=== PATIENT | male | born 1930 | race Caucasian/White ===

== ENCOUNTER 2016-09-09 11:39 | Observation (INO) | payer MEDICAID, MEDICARE, OTHER ==
[2016-09-09] VITALS (8 sets, daily range): BP systolic 102–155; BP diastolic 63–89; PULSE 80–89; RESP 18–22; TEMP 97.9–98.7; O2SAT 94–97
[~2016-09-09] VITALS: Ht 180.3 cm; Wt 95.0 kg
[2016-09-09] MEDS ORDERED: SODIUM CHLORID 0.9% 500 ML INJ 500 ML IV ONE ×2 (12:00→14:30)
--- NOTE | 2016-09-09 12:14 | PD ---
HPI Chief Complaint: Chest Pain Time Seen by Provider: 12:11 Travel History International Travel<30 days: No Contact w/Intl Traveler<30days: No Traveled to known affect area: No History of Present Illness HPI 86-year-old male that presents to the ED for evaluation of left-sided chest pain. Patient came here by ambulance for evaluation of this. Per patient he started this morning. Per patient he felt funny this morning. He has a history of COPD and has been coughing and feels somewhat short of breath. Patient currently taking Levaquin and doxycycline per his medication list. Unclear as to why. She is somewhat of a poor historian. He does to me that he had a bout replaced for a takes both in the 70s. He does have a surgical scar from this. He does not know what he's ever had any stents or heart disease secondary to an injury that he sustained when he was younger. She does take blood thinners. He states that the pain on the left chest comes and goes. He has an allergy to aspirin. Patient was not given any medications on the way here. Patient states the pain is 4 out of 10 and constant. It gets worse with cough and deep breaths. Denies any fevers chills or sweats. He does use inhalers at home. Has a history of hypertension and smoking. Patient has never been in this hospital before. She lives in assisted living facility. History again is somewhat limited with the patient. PFSH Past Medical History Hx Anticoagulant Therapy: Yes Cardiovascular Problems: Yes Congestive Heart Failure: Yes COPD: Yes Diabetes: No Hypertension: Yes Medical other: Yes (PLEURAL EFFUSIONS) Respiratory: Yes Pneumonia: Yes Renal Failure: Yes (INSUFFICIENCY) Tetanus Vaccination: Unknown Influenza Vaccination: Yes Past Surgical History Valve Replacement: Yes (ATRIAL) Social History Alcohol Use: No Tobacco Use: No Substance Use: No Allergies-Medications (Allergen,Severity, Reaction): Coded Allergies: Penicillin (Verified Allergy, Intermediate, HIVES, 09/09/16) Aspirin (Verified Allergy, Unknown, 09/09/16) Reported Meds & Prescriptions Reported Meds & Active Scripts Active Reported Flonase Nasal [place] (Fluticasone Nasal [place]) 50 Mcg/Act [place] 50 Mcg EACH NARE BID Levaquin (Levofloxacin) 500 Mg Tab 500 Mg PO Q48H Doxycycline 40 Mg Cap 100 Mg PO DAILY Acetaminophen 325 Mg Tab 325 Mg PO Q4-6H PRN Duoneb (Ipratropium-Albuterol Neb) 0.5-2.5 Mg/3 Ml Neb 1 Nebule INH Q8HR NEB Lovastatin 20 Mg Tab 20 Mg PO DAILY Klor-Con 10 (Potassium Chloride) 10 Meq Tab 10 Meq PO BID Colace (Docusate Sodium) 100 Mg Cap 100 Mg PO BID Tamsulosin (Tamsulosin HCl) 0.4 Mg Cap 0.4 Mg PO HS Breo Ellipta Inh (Fluticasone/Vilanterol) 100-25 Mcg/Act Inh 1 Puff INH DAILY Use daily at the same time. Glipizide 5 Mg Tab 2.5 Mg PO DAILY Take 30 minutes before a meal Furosemide 40 Mg Tab 40 Mg PO DAILY Plavix (Clopidogrel Bisulfate) 75 Mg Tab 75 Mg PO DAILY Review of Systems General / Constitutional: No: Fever, Chills, Weight Gain, Weight Loss, Other Eyes: No: Diploplia, Blurred Vision, Photophobia, Drainage, Redness, Foreign Body Sensation, Pain, Tearing, Blind Spots, Visual changes, Blindness, Other HENT: No: Headaches, Vertigo, Lightheadedness, Sore Throat, Rhinitis, Rhinorrhea, Congestion, Nosebleed, Neck Stiffness, Neck Pain, Masses, Gingival Bleeding, Dental Difficulties, Ear Discharge, Earache, Other Cardiovascular: Positive: Chest Pain or Discomfort, No: Palpitations, Irregular Rhythm, Tachycardia, Diaphoresis, Syncope, Dyspnea on exertion, Varicosities, Edema, Cyanosis, Varicosities, Phlebitis, Claudication, Other Respiratory: Positive: Cough, Shortness of Breath, Wheezing, No: Sneezing, Orthopnea, Hemoptysis, Stridor, Night Sweats, Pleuritic Pain, Other Gastrointestinal: No: Nausea, Vomiting, Diarrhea, Abdominal Pain, Hematemesis, Hematochezia, Constipation, Changes in Bowel Habits, Indigestion, Dysphagia, Loss of Appetite, Other Genitourinary: No: Urgency, Frequency, Dysuria, Nocturia, Hematuria, Decreased Urinary Output, Oliguria, Hesitancy, Dribbling, Incontinence, Pelvic Pain, Flank Pain, Dyspareunia, Discharge, Dysmenorrhea, Menorrhagia, Metorrhagia, Vaginal Bleeding, Other Musculoskeletal: No: Myalgias, Arthralgias, Limited ROM, Weakness, Cramping, Edema, Pain, Atrophy, Other Skin: No Rash, No Itching, No Dryness, No Lumps, No Hives, No Change in Pigmentation, No Change in nails, No Alopecia, No Lesions, No Breast Lumps, No Breast Tenderness, No Breast Swelling, No Other Neurologic: No: Weakness, Dizziness, Syncope, Focal Abnormalities, Coordination Problem, Tremor, Ataxia, Headache, Change in Mentation, Slurred Speech, Paresthesia, Incontinence, Seizures, Sensory Disturbance, Other Psychiatric: No: Anxiety, Depression, Suicidal Ideations, Disorder of Thought, Mood Disorder, Substance Abuse, Homicidal Ideation, Other Endocrine: No: Heat Intolerance, Cold Intolerance, Polyuria, Polydipsia, Other Hematologic/Lymphatic: No: Easy Bruising, Lymph Node Enlargement, Other Physical Exam Narrative GENERAL: SKIN: Warm and dry. HEAD: Atraumatic. Normocephalic. EYES: Pupils equal and round. No scleral icterus. No injection or drainage. ENT: No nasal bleeding or discharge. Mucous membranes pink and moist. Tongue is midline. No uvula deviation. NECK: Trachea midline. No JVD. CARDIOVASCULAR: Regular rate and rhythm. No murmurs, S3, S4. RESPIRATORY: No accessory muscle use. Clear to auscultation. Breath sounds equal bilaterally. GASTROINTESTINAL: Abdomen soft, non-tender, nondistended. Hepatic and splenic margins not palpable. MUSCULOSKELETAL: Extremities without clubbing, cyanosis, or edema. No obvious deformities. Chest pain is not reproducible with touch. Full range of motion of the upper and lower extremities bilaterally. 2+ pulses bilaterally. NEUROLOGICAL: Awake and alert. No obvious cranial nerve deficits. Motor grossly within normal limits. Five out of 5 muscle strength in the arms and legs. Normal speech. PSYCHIATRIC: Appropriate mood and affect; insight and judgment normal. Data Data Last Documented VS Vital Signs Date Time Temp Pulse Resp B/P Pulse Ox O2 Delivery O2 Flow Rate FiO2 09/09/16 12:00 94 Room Air 09/09/16 12:00 22 09/09/16 11:49 83 09/09/16 11:49 155/89 09/09/16 11:42 98.7 Orders Electrocardiogram (09/09/16 ) Electrocardiogram (09/09/16 11:47) B-Type Natriuretic Peptide (09/09/16 11:47) Ckmb (Isoenzyme) Profile (09/09/16 11:47) Complete Blood Count With Diff (09/09/16 11:47) Comprehensive Metabolic Panel (09/09/16 11:47) Magnesium (Mg) (09/09/16 11:47) Prothrombin Time / Inr (Pt) (09/09/16 11:47) Act Partial Throm Time (Ptt) (09/09/16 11:47) Troponin I (09/09/16 11:47) Lipase (09/09/16 11:47) Chest, Single Ap (09/09/16 11:47) Ecg Monitoring (09/09/16 11:47) Bilateral Bp Monitoring (09/09/16 11:47) Iv Access Insert/Monitor (09/09/16 11:47) Oximetry (09/09/16 11:47) Oxygen Administration (09/09/16 11:47) Sodium Chlorid 0.9% 500 Ml Inj (Ns 500 M (09/09/16 12:00) Albuterol Neb (Albuterol Neb) (09/09/16 13:30) Labs Laboratory Tests Test 09/09/16 12:02 White Blood Count 6.8 TH/MM3 Red Blood Count 4.93 MIL/MM3 Hemoglobin 13.4 GM/DL Hematocrit 40.6 % Mean Corpuscular Volume 82.5 FL Mean Corpuscular Hemoglobin 27.3 PG Mean Corpuscular Hemoglobin 33.0 % Concent Red Cell Distribution Width 15.6 % Platelet Count 104 TH/MM3 Mean Platelet Volume 8.3 FL Neutrophils (%) (Auto) 73.4 % Lymphocytes (%) (Auto) 14.8 % Monocytes (%) (Auto) 8.2 % Eosinophils (%) (Auto) 3.2 % Basophils (%) (Auto) 0.4 % Neutrophils # (Auto) 5.0 TH/MM3 Lymphocytes # (Auto) 1.0 TH/MM3 Monocytes # (Auto) 0.6 TH/MM3 Eosinophils # (Auto) 0.2 TH/MM3 Basophils # (Auto) 0.0 TH/MM3 CBC Comment DIFF FINAL Differential Comment Prothrombin Time 11.6 SEC Prothromb Time International 1.0 RATIO Ratio Activated Partial 25.2 SEC Thromboplast Time Sodium Level 142 MEQ/L Potassium Level 4.2 MEQ/L Chloride Level 107 MEQ/L Carbon Dioxide Level 26.6 MEQ/L Anion Gap 8 MEQ/L Blood Urea Nitrogen 43 MG/DL Creatinine 1.72 MG/DL Estimat Glomerular Filtration 38 ML/MIN Rate Random Glucose 56 MG/DL Calcium Level 8.5 MG/DL Magnesium Level 2.2 MG/DL Total Bilirubin 0.6 MG/DL Aspartate Amino Transf 23 U/L (AST/SGOT) Alanine Aminotransferase 17 U/L (ALT/SGPT) Alkaline Phosphatase 58 U/L Total Creatine Kinase 89 U/L Troponin I 0.05 NG/ML B-Type Natriuretic Peptide 305 PG/ML Total Protein 7.6 GM/DL Albumin 3.0 GM/DL Lipase 86 U/L [facility] Medical Decision Making Medical Screen Exam Complete: Yes Emergency Medical Condition: Yes Medical Record Reviewed: Yes Interpretation(s) EKG shows sinus rhythm with no sign of acute ischemia or arrhythmia read by me and attending. Troponin and CK-MB negative. CBC & BMP Diagram 09/09/16 12:02 LFTs and Lipase WNL BNP in the 300s Last Impressions Chest X-Ray 09/09/16 1147 Signed Impressions: Service Date/Time: Friday, September 09, 2016 11:57 - CONCLUSION: Cardiomegaly without evidence of congestive heart failure. Blunting of the left costophrenic angle which may represent fluid versus scar. Kortney Curry MD Differential Diagnosis Pneumonia versus COPD exacerbation versus chest pain versus ACS versus cardiac chest pain Narrative Course 86-year-old male that presents to the ED for evaluation of left-sided chest pain. Patient was properly examined and was found to have signs and symptoms consistent with appears to be concerning for cardiac chest pain. This time labs and imaging recommended. Labs and imaging showed no sign of acute disease. I did reexamine the patient and he does have some rales on exam. Patient still complains of the left-sided chest pain. Again patient for she cannot take aspirin but he already takes blood thinner. Case was discussed in my attending Dr. Puga who recommends admission for at least chest pain rule out. Patient was given breathing treatment here to help with his shortness of breath. Patient was given nitroglycerin as well for his chest pain. Patient goes to Dr. Vaughn is his primary care doctor. I was informed that Dr. Vaughn it' s admitting to [facility] this weekend. JOS was paged and Dr. Mendenhall agreed to admission. Diagnosis Primary Impression: Chest pain in adult Additional Impressions: COPD (chronic obstructive pulmonary disease) Qualified Code: J44.1 - Chronic obstructive pulmonary disease with acute exacerbation Acute kidney injury Admitting Information Admitting Physician Requests: Observation Addison Pereyra Sep 09, 2016 12:14 Addison Pereyra Sep 09, 2016 12:14
[2016-09-09] MEDS ORDERED: TAMS0.4C4 PO (12:20)
[2016-09-09] MEDS ORDERED: LEVA500T PO (12:20)
[2016-09-09] MEDS ORDERED: LOVA20TA PO (12:20)
[2016-09-09] MEDS ORDERED: COLA100C3 PO (12:20)
[2016-09-09] MEDS ORDERED: POTA-243 PO (12:20)
[2016-09-09] MEDS ORDERED: IPRASOL INH (12:20)
[2016-09-09] MEDS ORDERED: ACET325T PO (12:20)
[2016-09-09] MEDS ORDERED: FLUT1INH INH (12:20)
[2016-09-09] MEDS ORDERED: DOXY1CAP74 PO (12:20)
[2016-09-09] MEDS ORDERED: FLUT1SPR5 EACH NARE (12:20)
[2016-09-09] MEDS ORDERED: GLIP5TAB8 PO (12:20)
[2016-09-09] MEDS ORDERED: FURO40TA PO (12:20)
[2016-09-09] MEDS ORDERED: PLAV75TA29 PO (12:20)
[2016-09-09 12:33] LABS: BASOPHIL % 0.4 % (0.0-2.0); EOSINOPHIL # 0.2 TH/MM3 (0-0.4); EOSINOPHIL % 3.2 % (0.0-4.0); HEMATOCRIT 40.6 % (39.0-51.0); HEMO FLAGS DIFF FINAL; LYMPH % 14.8 % (9.0-44.0); MEAN CELL VOLUME 82.5 FL (80.0-100.0); MEAN CORPUSCULAR HEMOGLOBIN 27.3 PG (27.0-34.0); MONO % 8.2 % (0.0-8.0); NEUT % 73.4 % (16.0-70.0); PLATELET COUNT 104 TH/MM3 (150-450); RED BLOOD COUNT 4.93 MIL/MM3 (4.50-5.90); RED CELL DISTRIBUTION WIDTH 15.6 % (11.6-17.2); WHITE BLOOD COUNT 6.8 TH/MM3 (4.0-11.0)
[2016-09-09 12:40] LABS: APTT (PATIENT) 25.2 SEC (24.3-30.1); PROTHROMBIN TIME - PATIENT 11.6 SEC (9.8-11.6)
[2016-09-09 12:45] LABS: ANION GAP 8 MEQ/L (5-15); AST (GOT) 23 U/L (15-37); BICARBONATE 26.6 MEQ/L (21.0-32.0); BLOOD UREA NITROGEN 43 MG/DL (7-18); CHLORIDE 107 MEQ/L (98-107); GLOMERULAR FILTRATION RATE 38 ML/MIN (>89); MAGNESIUM 2.2 MG/DL (1.5-2.5); POTASSIUM 4.2 MEQ/L (3.5-5.1); SODIUM (NA) 142 MEQ/L (136-145)
--- NOTE | 2016-09-09 12:45 | RADRPT ---
EXAM DATE/TIME: 09/09/2016 11:57 [facility] COMPARISON: No previous studies available for comparison. INDICATIONS : Chest pain. MEDICAL HISTORY : Hypertension. Congestive heart failure. Chronic obstructive pulmonary disease. SURGICAL HISTORY : Valve replacement. ENCOUNTER: Initial ACUITY: 1 day PAIN SCORE: Non-responsive. LOCATION: Bilateral chest FINDINGS: Single portable view of the chest demonstrates mild cardiomegaly. Pulmonary vasculature is mildly pro minent. The lungs appear grossly clear. There is slight blunting of the left costophrenic angle which may represent fluid or scar. Multiple intact mediastinal wires are present. CONCLUSION: Cardiomegaly without evidence of congestive heart failure. Blunting of the left costophrenic angle wh ich may represent fluid versus scar. Kortney Curry MD on September 09, 2016 at 12:42 Board Certified Radiologist. This report was verified electronically.
[2016-09-09 12:50] LABS: ALKALINE PHOSPHATASE 58 U/L (45-117); ALT (GPT) 17 U/L (12-78); TOTAL BILIRUBIN ADULT 0.6 MG/DL (0.2-1.0)
[2016-09-09 12:51] LABS: CREATINE KINASE 89 U/L (39-308)
[2016-09-09] MEDS ORDERED: RESP: ALBUTEROL 2.5 MG/3 ML NEB (SCH) INH ONE (13:30)
[2016-09-09] MEDS ORDERED: ACETAMINOPHEN 325 MG TAB PO PRN (13:30)
[2016-09-09] MEDS ORDERED: DEXTROSE 50% IN WATER 50 ML VIAL(D50) IV PUSH PRN (13:30)
[2016-09-09] MEDS ORDERED: GLUCAGON 1 MG/ML VIAL OTHER PRN (13:30)
[2016-09-09] MEDS ORDERED: RESP: ALBUTEROL 1.25 MG/3 ML NEB (PRN) NEB ×2 (13:30→16:00)
[2016-09-09] MEDS ORDERED: guaiFENesin SOLUTION 200 MG/10 ML CUP PO PRN (14:30)
[2016-09-09] MEDS ORDERED: LEVOFLOXACIN 500 MG PREMIX INJ 100 ML IV SCH (14:30)
[2016-09-09] MEDS ORDERED: [UNRECOGNIZED DRUG - REMARK] OTHER SCH (14:30)
[2016-09-09] MEDS ORDERED: ACETAMINOPHEN/HYDROcodone 325 MG/5 MG TAB PO PRN (14:30)
--- NOTE | 2016-09-09 14:30 | HHI.HP ---
[facility] Service [facility] Primary Care Physician Eduar Vaughn MD Admission Diagnosis chest pain, r/o ACS, CHF, COPD Diagnoses: (1) Chest pain in adult Diagnosis: Principal (2) COPD exacerbation Diagnosis: Principal Chief Complaint: chest pain Travel History International Travel<30 Days: No Contact w/Intl Traveler <30 Da: No Traveled to Known Affected Are: No History of Present Illness patient is a 86 y/o male with history of COPD- oxygen dependent, who presented to ER with chest pain. he says that the pain started earlier this morning. pain is localized to left lower chest and left lateral rib cage with no radiation. pain was not associated with nausea, vomiting or diaphoresis. pain is worse with deep inspiration. he says that he's been coughing productive of some yellowish sputum. no fever or chills. Review of Systems Constitutional: DENIES: Fever, Weight loss, Chills, Night Sweats Eyes: DENIES: Blurred vision, Diplopia, Vision loss, Double Vision Ears, nose, mouth, throat: DENIES: Tinnitus, Vertigo, Throat pain, Epistaxis Respiratory: COMPLAINS OF: Sputum production, Shortness of breath, DENIES: Apneas, Cough, Snoring, Wheezing, Hemoptysis Cardiovascular: COMPLAINS OF: Chest pain, DENIES: Palpitations, Syncope, Dyspnea on Exertion, PND, Lower Extremity Edema, Orthopnea, Claudication Gastrointestinal: DENIES: Abdominal pain, Black stools, Bloody stools, Constipation, Diarrhea, Nausea, Vomiting, Difficulty Swallowing, Anorexia Genitourinary: DENIES: Urinary frequency, Urgency, Hematuria, Dysuria Musculoskeletal: DENIES: Joint pain, Muscle aches, Stiffness, Joint Swelling Integumentary: DENIES: Rash Neurologic: DENIES: Abnormal gait, Headache, Localized weakness, Paresthesias, Seizures, Speech Problems, Tremor, Poor Balance Psychiatric: DENIES: Anxiety, Confusion, Mood changes, Depression, Hallucinations, Agitation, Suicidal Ideation, Homicidal Ideation, Delusions Past Family Social History Past Medical History copd cad with history of valve replacemt hypertension diabetes mellitus Past Surgical History valve replacement Reported Medications Flonase Nasal [place] (Fluticasone Nasal [place]) 50 Mcg/Act [place] 50 Mcg EACH NARE BID Levaquin (Levofloxacin) 500 Mg Tab 500 Mg PO Q48H Doxycycline 40 Mg Cap 100 Mg PO DAILY Acetaminophen 325 Mg Tab 325 Mg PO Q4-6H PRN Duoneb (Ipratropium-Albuterol Neb) 0.5-2.5 Mg/3 Ml Neb 1 Nebule INH Q8HR NEB Lovastatin 20 Mg Tab 20 Mg PO DAILY Klor-Con 10 (Potassium Chloride) 10 Meq Tab 10 Meq PO BID Colace (Docusate Sodium) 100 Mg Cap 100 Mg PO BID Tamsulosin (Tamsulosin HCl) 0.4 Mg Cap 0.4 Mg PO HS Breo Ellipta Inh (Fluticasone/Vilanterol) 100-25 Mcg/Act Inh 1 Puff INH DAILY Use daily at the same time. Glipizide 5 Mg Tab 2.5 Mg PO DAILY Take 30 minutes before a meal Furosemide 40 Mg Tab 40 Mg PO DAILY Plavix (Clopidogrel Bisulfate) 75 Mg Tab 75 Mg PO DAILY Allergies: Coded Allergies: Penicillin (Verified Allergy, Intermediate, HIVES, 09/09/16) Aspirin (Verified Allergy, Unknown, 09/09/16) Active Ordered Medications Current Medications Sodium Chloride (NS 500 ml Inj) 500 ml @ 500 mls/hr ONCE ONCE IV Last administered on 09/09/16 12:22; Start 09/09/16 at 12:00; Stop 09/09/16 at 12:59 ; Status DC Albuterol Sulfate (Albuterol Neb) 2.5 mg ONCE ONCE INH Last administered on 13:48; Start 09/09/16 at 13:30; Stop 09/09/16 at 13:31; Status DC Dextrose (D50w (Vial) Inj) 25 ml UNSCH PRN IV PUSH HYPOGLYCEMIA-SEE COMMENTS; Start 09/09/16 at 13:30 Glucagon (Glucagon Inj) 1 mg UNSCH PRN OTHER HYPOGLYCEMIA-SEE COMMENTS; Start 09/09/16 at 13:30 Insulin Aspart (NovoLOG SUPPLEMENTAL SCALE) 1 ACHS SLIDING SCALE SQ ; Start at 16:00 Acetaminophen (Tylenol) 325 mg Q4HR PRN PO FEVER/PAIN; Start 09/09/16 at 13:30 Clopidogrel Bisulfate (Plavix) 75 mg DAILY PO ; Start 09/10/16 at 09:00 Fluticasone/ Vilanterol (Breo Ellipta 100-25 Inh) 1 puff DAILY INH ; Start 09/10 at 09:00 Pravastatin Sodium (Pravachol) 20 mg DAILY PO ; Start 09/10/16 at 09:00 Tamsulosin HCl (Flomax) 0.4 mg HS PO ; Start 09/09/16 at 21:00 Albuterol Sulfate (Albuterol Neb) 1.25 mg Q4HR NEB PRN NEB SHORTNESS OF BREATH ; Start 09/09/16 at 13:30 Social History quit smoking years ago. Physical Exam Vital Signs Vital Signs Date Time Temp Pulse Resp B/P Pulse Ox O2 Delivery O2 Flow Rate FiO2 09/09/16 13:52 94 Nasal Cannula 2.00 09/09/16 12:00 94 Room Air 09/09/16 12:00 22 94 Room Air 09/09/16 11:49 83 22 94 Room Air 09/09/16 11:49 81 22 155/89 94 09/09/16 11:42 98.7 89 20 155/89 94 Physical Exam GENERAL: with mild sob SKIN: No rashes, ecchymoses or lesions. Cool and dry. HEAD: Atraumatic. Normocephalic. No temporal or scalp tenderness. EYES: Pupils equal round and reactive. Extraocular motions intact. No scleral icterus. No injection or drainage. ENT: Nose without bleeding, purulent drainage or septal hematoma. Throat without erythema, tonsillar hypertrophy or exudate. Uvula midline. Airway patent. NECK: Trachea midline. No JVD or lymphadenopathy. Supple, nontender, no meningeal signs. CARDIOVASCULAR: Regular rate and rhythm without murmurs, gallops, or rubs. RESPIRATORY: diminished air entry in bases GASTROINTESTINAL: Abdomen soft, non-tender, nondistended. No hepato-splenomegaly , or palpable masses. No guarding. MUSCULOSKELETAL: Extremities without clubbing, cyanosis, or edema. No joint tenderness, effusion, or edema noted. No calf tenderness. Negative Homans sign bilaterally. NEUROLOGICAL: Awake and alert. Cranial nerves II through XII intact. Motor and sensory grossly within normal limits. Five out of 5 muscle strength in all muscle groups. Normal speech. Laboratory Laboratory Tests Test 09/09/16 12:02 White Blood Count 6.8 Red Blood Count 4.93 Hemoglobin 13.4 Hematocrit 40.6 Mean Corpuscular Volume 82.5 Mean Corpuscular Hemoglobin 27.3 Mean Corpuscular Hemoglobin 33.0 Concent Red Cell Distribution Width 15.6 Platelet Count 104 Mean Platelet Volume 8.3 Neutrophils (%) (Auto) 73.4 Lymphocytes (%) (Auto) 14.8 Monocytes (%) (Auto) 8.2 Eosinophils (%) (Auto) 3.2 Basophils (%) (Auto) 0.4 Neutrophils # (Auto) 5.0 Lymphocytes # (Auto) 1.0 Monocytes # (Auto) 0.6 Eosinophils # (Auto) 0.2 Basophils # (Auto) 0.0 CBC Comment DIFF FINAL Differential Comment Prothrombin Time 11.6 Prothromb Time International 1.0 Ratio Activated Partial 25.2 Thromboplast Time Sodium Level 142 Potassium Level 4.2 Chloride Level 107 Carbon Dioxide Level 26.6 Anion Gap 8 Blood Urea Nitrogen 43 Creatinine 1.72 Estimat Glomerular Filtration 38 Rate Random Glucose 56 Calcium Level 8.5 Magnesium Level 2.2 Total Bilirubin 0.6 Aspartate Amino Transf 23 (AST/SGOT) Alanine Aminotransferase 17 (ALT/SGPT) Alkaline Phosphatase 58 Total Creatine Kinase 89 Troponin I 0.05 B-Type Natriuretic Peptide 305 Total Protein 7.6 Albumin 3.0 Lipase 86 Result Diagram: 09/09/16 1202 09/09/16 1202 Imaging Last Impressions Chest X-Ray 09/09/16 1147 Signed Impressions: Service Date/Time: Friday, September 09, 2016 11:57 - CONCLUSION: Cardiomegaly without evidence of congestive heart failure. Blunting of the left costophrenic angle which may represent fluid versus scar. Kortney Curry MD Assessment and Plan Assessment and Plan A/P - chest pain with history of CAD/ valve replacement? continue plavix and statin- will trend the cardiac enzymes -mild exacerbation of COPD continue Breo- start neb treatment and antibiotic ( pharmacy consulted for dosing) -renal insufficiency with unknown duration gentle IV hydration- hold lasix for now- repeat BMP in am -diabetes mellitus; accu-check with SSI -DVT prophylaxis with SCD's Discussed Condition With ER physician and the patient. Barbara Collins MD Sep 09, 2016 14:30
[2016-09-09] MEDS ORDERED: LEVOFLOXACIN 750 MG/DEXTROSE 150 ML IV SCH ×2 (15:00)
[2016-09-09] MEDS: INSULIN ASPART SUPPLEMENTAL SCALE SQ SCH ×2 (16:00→20:52)
[2016-09-09] MEDS: RESP: ALBUTEROL 2.5 MG/IPRATROPIUM 0.5 MG NEB (SCH) NEB (21:29)
[2016-09-09] MEDS: TAMSULOSIN HCL 0.4 MG CAP PO SCH (21:39)
[2016-09-10] VITALS (10 sets, daily range): BP systolic 107–126; BP diastolic 60–80; PULSE 68–95; RESP 18–22; TEMP 98–98.7; O2SAT 92–97
[2016-09-10] MEDS: RESP: ALBUTEROL 2.5 MG/IPRATROPIUM 0.5 MG NEB (SCH) NEB ×6 (00:25→20:14)
[2016-09-10 02:43] LABS: BICARBONATE 27.2 MEQ/L (21.0-32.0); POTASSIUM 3.8 MEQ/L (3.5-5.1)
[2016-09-10] MEDS: INSULIN ASPART SUPPLEMENTAL SCALE SQ SCH ×4 (05:38→21:00)
--- NOTE | 2016-09-10 07:41 | HHI.PR ---
Subjective Remarks in no acute distress. chest pain and sob is better. no fever. Objective Vitals Vital Signs Date Time Temp Pulse Resp B/P Pulse Ox O2 Delivery O2 Flow Rate FiO2 09/10/16 03:47 98.0 68 18 107/60 97 09/10/16 00:45 98.2 92 18 115/68 96 09/09/16 20:21 80 09/09/16 19:36 97.9 81 18 102/64 97 09/09/16 15:16 81 22 128/70 97 Nasal Cannula 2 09/09/16 14:00 83 20 130/63 96 Nasal Cannula 2 09/09/16 13:52 94 Nasal Cannula 2.00 09/09/16 12:00 94 Room Air 09/09/16 12:00 22 94 Room Air 09/09/16 11:49 83 22 94 Room Air 09/09/16 11:49 81 22 155/89 94 09/09/16 11:42 98.7 89 20 155/89 94 Result Diagram: 09/09/16 1202 09/10/16 0025 Imaging Last Impressions Chest X-Ray 09/09/16 1147 Signed Impressions: Service Date/Time: Friday, September 09, 2016 11:57 - CONCLUSION: Cardiomegaly without evidence of congestive heart failure. Blunting of the left costophrenic angle which may represent fluid versus scar. Kortney Curry MD Objective Remarks GENERAL: This is a well-nourished, well-developed patient, in no apparent distress. CARDIOVASCULAR: Regular rate and regular rhythm without murmurs, gallops, or rubs. RESPIRATORY: diminished air entry in bases GASTROINTESTINAL: Abdomen soft, non-tender, nondistended. Normal, active bowel sounds MUSCULOSKELETAL: Extremities without clubbing, cyanosis, or edema. NEURO: Alert & Oriented x4 to person, place, time, situation. Moves all ext x4 Procedures none Medications and IVs Current Medications Sodium Chloride (NS 500 ml Inj) 500 ml @ 500 mls/hr ONCE ONCE IV Last administered on 09/09/16 12:22; Start 09/09/16 at 12:00; Stop 09/09/16 at 12:59 ; Status DC Albuterol Sulfate (Albuterol Neb) 2.5 mg ONCE ONCE INH Last administered on 13:48; Start 09/09/16 at 13:30; Stop 09/09/16 at 13:31; Status DC Dextrose (D50w (Vial) Inj) 25 ml UNSCH PRN IV PUSH HYPOGLYCEMIA-SEE COMMENTS; Start 09/09/16 at 13:30 Glucagon (Glucagon Inj) 1 mg UNSCH PRN OTHER HYPOGLYCEMIA-SEE COMMENTS; Start 09/09/16 at 13:30 Insulin Aspart (NovoLOG SUPPLEMENTAL SCALE) 1 ACHS SLIDING SCALE SQ ; Start at 16:00 Acetaminophen (Tylenol) 325 mg Q4HR PRN PO FEVER/ PAIN 1-5; Start 09/09/16 at 13:30 Clopidogrel Bisulfate (Plavix) 75 mg DAILY PO ; Start 09/10/16 at 09:00 Fluticasone/ Vilanterol (Breo Ellipta 100-25 Inh) 1 puff DAILY INH ; Start 09/10 at 09:00 Pravastatin Sodium (Pravachol) 20 mg DAILY PO ; Start 09/10/16 at 09:00 Tamsulosin HCl (Flomax) 0.4 mg HS PO Last administered on 09/09/16t 21:39; Start 09/09/16 at 21:00 Albuterol Sulfate (Albuterol Neb) 1.25 mg Q4HR NEB PRN NEB SHORTNESS OF BREATH ; Start 09/09/16 at 13:30; Stop 09/09/16 at 14:20; Status DC Albuterol Sulfate (Albuterol Neb) 1.25 mg Q2HR NEB PRN NEB SHORTNESS OF BREATH ; Start 09/09/16 at 16:00 Albuterol/ Ipratropium (Duoneb Neb) 1 ampule Q4HR NEB NEB Last administered on 09/10/16t 03:31; Start 09/09/16 at 16:00 Acetaminophen/ Hydrocodone Bitart 1 tab 1 tab Q4H PRN PO PAIN 6-10; Start 09/09 at 14:30 Levofloxacin/ Dextrose (Levaquin 500 Mg Premix Inj) 100 ml @ 100 mls/hr Q24H IV ; Start 09/09/16 at 14:30; Status UNV Guaifenesin 200 mg 200 mg Q4H PRN PO COUGH; Start 09/09/16 at 14:30 Pharmacy Profile Note 0 ml @ 0 mls/hr UNSCH OTHER ; Start 09/09/16 at 14:30 Sodium Chloride 500 ml @ 50 mls/hr Q10H ONCE IV Last administered on 15:02; Start 09/09/16 at 14:30; Stop 09/10/16 at 00:29; Status DC Levofloxacin/ Dextrose 150 ml @ 100 mls/hr Q24H IV ; Start 09/09/16 at 15:00; Status Cancel Levofloxacin/ Dextrose (Levaquin 750 Mg Premix Inj) 150 ml @ 100 mls/hr Q48H IV Last administered on 09/09/16 15:02; Start 09/09/16 at 15:00 A/P Assessment and Plan A/P - chest pain with history of CAD/ valve replacement? continue plavix and statin- cardiac enzymes negative- will do stress test today. -mild exacerbation of COPD- improving continue Breo and neb treatment along with antibiotic ( pharmacy consulted for dosing) -renal insufficiency with unknown duration- improved continue gentle IV hydration- hold lasix for now- repeat BMP in am -diabetes mellitus; accu-check with SSI -DVT prophylaxis with SCD's Discharge Planning possible dc home in am if stable- pending the stress test. Barbara Collins MD Sep 10, 2016 07:41
[2016-09-10] MEDS ORDERED: SODIUM CHLORID 0.9% 500 ML INJ 500 ML IV ONE (08:00)
[2016-09-10] MEDS: CLOPIDOGREL 75 MG TAB PO SCH (08:59)
[2016-09-10] MEDS: PRAVASTATIN SOD 20 MG TAB PO SCH (08:59)
[2016-09-10] MEDS: FLUTICASONE 100 MCG/VILANTEROL 25 MCG INHALER INH SCH (11:20)
[2016-09-10] MEDS ORDERED: REGADENOSON INJ 0.4 MG/5 ML SYR ONE (12:36)
--- NOTE | 2016-09-10 14:34 | RADRPT ---
EXAM DATE/TIME: 09/10/2016 11:53 [facility] COMPARISON: No previous studies available for comparison. INDICATIONS : Left chest pain for 1 day. Cardiomegaly. Angina. Congestive heart failure. DOSE: 25.9 mCi Tc99m Myoview at stress. 8.1 mCi Tc99m Myoview at rest. 0.4 mg Lexiscan STRESS SYMPTOMS: Shortness of breath. EJECTION FRACTION: 61% MEDICAL HISTORY : Renal insufficiency. Chronic obstructive pulmonary disease. Pleural effusion. SURGICAL HISTORY : None. ENCOUNTER: Initial ACUITY: 1 day PAIN SCALE: 4/10 LOCATION: Left chest TECHNIQUE: The patient underwent pharmacologic stress with infusion of prescribed dose. Continuous ECG tracing was monitored during stress. Gated SPECT imaging was performed after stress and conventional SPECT i maging was performed at rest. The examination was performed on a SPECT/CT scanner, both attenuation and non-corrected datasets were reviewed. FINDINGS: DISTRIBUTION: The maximum perfused segment at stress is in the septal wall. PERFUSION STUDY: There is a large fixed perfusion defect in the lateral wall consistent with old [place]. No reversible def ects. GATED STUDY: Hypokinesis of the lateral wall. CONCLUSION: Fixed perfusion defect involving the lateral wall consistent with old [place].. RISK CATEGORY: Intermediate risk. Kortney Curry MD on September 10, 2016 at 14:30 Board Certified Radiologist. This report was verified electronically.
[2016-09-10] MEDS ORDERED: PILL SPLITTER OTHER PRN (15:15)
--- NOTE | 2016-09-10 15:48 | EKG ---
Date Performed: 09/09/2016 Time Performed: 11:53:27 PTAGE: 86 years EKG: The underlying is difficult to discern Possible Sinus with first degree AV block vs Atrial fibrillation Right axis deviation Right bundle branch block Premature ventricular contractions NO PREVIOUS TRACING DOCTOR: Kar Bonds Interpretating Date/Time 09/10/2016 15:47:39
--- NOTE | 2016-09-10 15:50 | EKG ---
Date Performed: 09/09/2016 Time Performed: 17:48:53 PTAGE: 86 years EKG: Sinus rhythm WITH FIRST DEGREE AV BLOCK with PVCs Left axis deviation RIGHT BUNDLE BRANCH BLOCK There is a shift in axis compared to prior tracing and a possible rhythm change ABNORMAL ECG PREVIOUS TRACING : 09/09/2016 11.53 DOCTOR: Kar Bonds Interpretating Date/Time 09/10/2016 15:48:52
--- NOTE | 2016-09-10 15:52 | EKG ---
Date Performed: 09/10/2016 Time Performed: 01:42:53 PTAGE: 86 years EKG: Sinus rhythm WITH FIRST DEGREE AV BLOCK RIGHT BUNDLE BRANCH BLOCK LEFT ANTERIOR FASCICULAR BLOCK CANNOT EXCLUDE A NTEROSEPTAL [place] Compared to prior tracing no significant change ABNORMAL ECG PREVIOUS TRACING : 09/09/2016 17.48 DOCTOR: Kar Bonds Interpretating Date/Time 09/10/2016 15:51:05
[2016-09-10] MEDS: METOPROLOL TARTRATE 25 MG TAB PO SCH (16:28)
[2016-09-10] MEDS: TAMSULOSIN HCL 0.4 MG CAP PO SCH (22:27)
[2016-09-11] VITALS (8 sets, daily range): BP systolic 99–121; BP diastolic 56–77; PULSE 78–102; RESP 18; TEMP 97.5–98.4; O2SAT 91–97
[2016-09-11] MEDS: RESP: ALBUTEROL 2.5 MG/IPRATROPIUM 0.5 MG NEB (SCH) NEB ×6 (00:45→19:43)
[2016-09-11] MEDS: INSULIN ASPART SUPPLEMENTAL SCALE SQ SCH ×3 (06:17→16:00)
--- NOTE | 2016-09-11 07:48 | HHI.PR ---
Subjective Remarks sounds congested. no fever. has some cough. d/w the RN and had occasional episodes of confusion. Objective Vitals Vital Signs Date Time Temp Pulse Resp B/P Pulse Ox O2 Delivery O2 Flow Rate FiO2 09/11/16 01:00 98.4 78 18 121/64 97 09/10/16 20:47 98.0 78 18 126/78 97 09/10/16 20:16 92 Nasal Cannula 3.00 09/10/16 20:00 90 09/10/16 16:00 98.3 95 22 122/79 94 09/10/16 15:37 98.7 95 18 125/80 95 09/10/16 09:43 93 Nasal Cannula 3.00 09/10/16 08:05 98.2 80 19 115/66 96 09/10/16 08:00 83 Result Diagram: 09/09/16 1202 09/10/16 0025 Imaging Last Impressions Myocardial Perfusion Scan Nuc Med 09/10/16 0000 Signed Impressions: Service Date/Time: Saturday, September 10, 2016 11:53 - CONCLUSION: Fixed perfusion defect involving the lateral wall consistent with old [place].. RISK CATEGORY: Intermediate risk. Kortney Curry MD Chest X-Ray 09/09/16 1147 Signed Impressions: Service Date/Time: Friday, September 09, 2016 11:57 - CONCLUSION: Cardiomegaly without evidence of congestive heart failure. Blunting of the left costophrenic angle which may represent fluid versus scar. Kortney Curry MD Objective Remarks GENERAL: This is a well-nourished, well-developed patient, in no apparent distress. CARDIOVASCULAR: Regular rate and regular rhythm without murmurs, gallops, or rubs. RESPIRATORY: sounds congested GASTROINTESTINAL: Abdomen soft, non-tender, nondistended. Normal, active bowel sounds MUSCULOSKELETAL: Extremities without clubbing, cyanosis, or edema. NEURO: Alert & Oriented x4 to person, place, time, situation. Moves all ext x4 Procedures none Medications and IVs Current Medications Sodium Chloride (NS 500 ml Inj) 500 ml @ 500 mls/hr ONCE ONCE IV Last administered on 09/09/16t 12:22; Start 09/09/16 at 12:00; Stop 09/09/16 at 12:59 ; Status DC Albuterol Sulfate (Albuterol Neb) 2.5 mg ONCE ONCE INH Last administered on 13:48; Start 09/09/16 at 13:30; Stop 09/09/16 at 13:31; Status DC Dextrose (D50w (Vial) Inj) 25 ml UNSCH PRN IV PUSH HYPOGLYCEMIA-SEE COMMENTS; Start 09/09/16 at 13:30 Glucagon (Glucagon Inj) 1 mg UNSCH PRN OTHER HYPOGLYCEMIA-SEE COMMENTS; Start 09/09/16 at 13:30 Insulin Aspart (NovoLOG SUPPLEMENTAL SCALE) 1 ACHS SLIDING SCALE SQ ; Start at 16:00 Acetaminophen (Tylenol) 325 mg Q4HR PRN PO FEVER/ PAIN 1-5; Start 09/09/16 at 13:30 Clopidogrel Bisulfate (Plavix) 75 mg DAILY PO Last administered on 09/10/16 08 :59; Start 09/10/16 at 09:00 Fluticasone/ Vilanterol (Breo Ellipta 100-25 Inh) 1 puff DAILY INH Last administered on 09/10/16 11:20; Start 09/10/16 at 09:00 Pravastatin Sodium (Pravachol) 20 mg DAILY PO Last administered on 09/10/16 08 :59; Start 09/10/16 at 09:00 Tamsulosin HCl (Flomax) 0.4 mg HS PO Last administered on 09/10/16 22:27; Start 09/09/16 at 21:00 Albuterol Sulfate (Albuterol Neb) 1.25 mg Q4HR NEB PRN NEB SHORTNESS OF BREATH ; Start 09/09/16 at 13:30; Stop 09/09/16 at 14:20; Status DC Albuterol Sulfate (Albuterol Neb) 1.25 mg Q2HR NEB PRN NEB SHORTNESS OF BREATH ; Start 09/09/16 at 16:00 Albuterol/ Ipratropium (Duoneb Neb) 1 ampule Q4HR NEB NEB Last administered on 09/11/16 03:40; Start 09/09/16 at 16:00 Acetaminophen/ Hydrocodone Bitart 1 tab 1 tab Q4H PRN PO PAIN 6-10; Start 09/09 at 14:30 Levofloxacin/ Dextrose (Levaquin 500 Mg Premix Inj) 100 ml @ 100 mls/hr Q24H IV ; Start 09/09/16 at 14:30; Status UNV Guaifenesin 200 mg 200 mg Q4H PRN PO COUGH; Start 09/09/16 at 14:30 Pharmacy Profile Note 0 ml @ 0 mls/hr UNSCH OTHER ; Start 09/09/16 at 14:30 Sodium Chloride 500 ml @ 50 mls/hr Q10H ONCE IV Last administered on 15:02; Start 09/09/16 at 14:30; Stop 09/10/16 at 00:29; Status DC Levofloxacin/ Dextrose 150 ml @ 100 mls/hr Q24H IV ; Start 09/09/16 at 15:00; Status Cancel Levofloxacin/ Dextrose 150 ml @ 100 mls/hr Q48H IV Last administered on 15:02; Start 09/09/16 at 15:00 Sodium Chloride (NS 500 ml Inj) 500 ml @ 50 mls/hr Q10H ONCE IV Last administered on 09/10/16 10:38; Start 09/10/16 at 08:00; Stop 09/10/16 at 17:59 ; Status DC Regadenoson (Lexiscan Inj) 0.4 mg STK-MED ONCE .ROUTE Last administered on 09/10 12:36; Start 09/10/16 at 12:36; Stop 09/10/16 at 12:37; Status DC Metoprolol Tartrate (Lopressor) 12.5 mg DAILY PO Last administered on 16:28; Start 09/10/16 at 16:00 Miscellaneous (Pill Splitter) 1 ea UNSCH PRN OTHER SEE LABEL COMMENTS; Start at 15:15 A/P Assessment and Plan A/P - chest pain with history of CAD/ valve replacement? continue plavix and statin- cardiac enzymes negative- stress test with no reversible ischemia -mild exacerbation of COPD- continue Breo and neb treatment along with antibiotic ( pharmacy consulted for dosing) -renal insufficiency with unknown duration- improved stopped IV hydration- hold lasix for now- repeat BMP today one dose of lasix today -diabetes mellitus; accu-check with SSI -DVT prophylaxis with SCD's Discharge Planning possible dc to SNF later today or in am - he'll be followed up by hospice. Barbara Collins MD Sep 11, 2016 07:48
[2016-09-11] MEDS ORDERED: LEVA500T PO (07:49)
--- NOTE | 2016-09-11 07:50 | HHI.DCPOC ---
Discharge Care Plan Diagnosis: (1) Chest pain in adult (2) COPD exacerbation Your Health Problems Are: Chest Pain Shortness of Breath Goals to Promote Your Health * To prevent worsening of your condition and complications * To maintain your health at the optimal level Directions to Meet Your Goals Take your medications as prescribed Follow your dietary instruction Follow activity as directed Keep your appointments as scheduled Take your immunizations and boosters as scheduled If your symptoms worsen call your PCP, if no PCP go to Urgent Care Center or Emergency Room Smoking is Dangerous to Your Health. Avoid second hand smoke Call the 24-hour hour crisis hotline for domestic abuse at Barbara Collins MD Sep 11, 2016 07:50
--- NOTE | 2016-09-11 07:51 | HHI.DS ---
Discharge Summary Admission Date Sep 09, 2016 at 13:30 Discharge Date: Sep 11, 2016 Admitting Diagnosis chest pain, r/o ACS, CHF, COPD (1) Chest pain in adult ICD Code: R07.9 Diagnosis: Principal (2) COPD exacerbation ICD Code: J44.1 Diagnosis: Principal Procedures none Brief History - From Admission patient is a 86 y/o male with history of COPD- oxygen dependent, who presented to ER with chest pain. he says that the pain started earlier this morning. pain is localized to left lower chest and left lateral rib cage with no radiation. pain was not associated with nausea, vomiting or diaphoresis. pain is worse with deep inspiration. he says that he's been coughing productive of some yellowish sputum. no fever or chills. CBC/BMP: 09/09/16 1202 09/10/16 0025 Significant Findings Laboratory Tests Test 09/09/16 09/10/16 12:02 00:25 Platelet Count 104 TH/MM3 (150-450) Neutrophils (%) (Auto) 73.4 % (16.0-70.0) Monocytes (%) (Auto) 8.2 % (0.0-8.0) Blood Urea Nitrogen 43 MG/DL (7-18) 37 MG/DL (7-18) Creatinine 1.72 MG/DL 1.39 MG/DL (0.60-1.30) (0.60-1.30) Estimat Glomerular Filtration 38 ML/MIN (>89) 49 ML/MIN (>89) Rate Random Glucose 56 MG/DL (74-106) B-Type Natriuretic Peptide 305 PG/ML (0-100) Albumin 3.0 GM/DL (3.4-5.0) Chloride Level 110 MEQ/L (98-107) Calcium Level 8.1 MG/DL (8.5-10.1) Imaging Last Impressions Myocardial Perfusion Scan Nuc Med 09/10/16 0000 Signed Impressions: Service Date/Time: Saturday, September 10, 2016 11:53 - CONCLUSION: Fixed perfusion defect involving the lateral wall consistent with old [place].. RISK CATEGORY: Intermediate risk. Kortney Curry MD Chest X-Ray 09/09/16 1147 Signed Impressions: Service Date/Time: Friday, September 09, 2016 11:57 - CONCLUSION: Cardiomegaly without evidence of congestive heart failure. Blunting of the left costophrenic angle which may represent fluid versus scar. Kortney Curry MD PE at Discharge GENERAL: This is a well-nourished, well-developed patient, in no apparent distress. CARDIOVASCULAR: Regular rate and regular rhythm without murmurs, gallops, or rubs. RESPIRATORY: sounds congested GASTROINTESTINAL: Abdomen soft, non-tender, nondistended. Normal, active bowel sounds MUSCULOSKELETAL: Extremities without clubbing, cyanosis, or edema. NEURO: Alert & Oriented x4 to person, place, time, situation. Moves all ext x4 Hospital Course - chest pain with history of CAD/ valve replacement? continue plavix and statin- cardiac enzymes negative- stress test with no reversible ischemia -mild exacerbation of COPD- continue Breo and neb treatment along with antibiotic ( pharmacy consulted for dosing) -renal insufficiency with unknown duration- improved stopped IV hydration- hold lasix for now- repeat BMP today -diabetes mellitus; accu-check with SSI -DVT prophylaxis with SCD's Pt Condition on Discharge: Deteriorating Discharge Disposition: Hospice/ Home Discharge Time: > 30 minutes Discharge Instructions DIET: Follow Instructions for: Heart Healthy Diet, Diabetic Diet Activities you can perform: Regular-No Restrictions Follow up Referrals: PCP Follow-up New Medications: Metoprolol Tartrate (Metoprolol Tartrate) 25 Mg Tab 12.5 MG PO DAILY hypertension Days 30 Ref 0 TAB Continued Medications: Acetaminophen (Acetaminophen) 325 Mg Tab 325 MG PO Q4-6H PRN PAIN SCALE 1 TO 10 Ref 0 TAB Clopidogrel (Plavix) 75 Mg Tab 75 MG PO DAILY Blood Clot Prevention #30 Ref 0 TAB Docusate Sodium (Colace) 100 Mg Cap 100 MG PO BID Constipation #60 Ref 0 CAP Fluticasone-Vilanterol Inh (Breo Ellipta Inh) 100-25 Mcg/Act Inh 1 PUFF INH DAILY Use daily at the same time. #1 Ref 0 INHALER Furosemide (Furosemide) 40 Mg Tab 40 MG PO DAILY #30 Ref 0 TAB Glipizide (Glipizide) 5 Mg Tab 2.5 MG PO DAILY Take 30 minutes before a meal Blood Sugar Management #30 Ref 0 TAB Ipratropium-Albuterol Neb (Duoneb) 0.5-2.5 Mg/3 Ml Neb 1 NEBULE INH Q8HR NEB Breathing Treatment #90 Ref 0 NEBULE Levofloxacin (Levaquin) 500 Mg Tab 500 MG PO Q48H Infection #3 Ref 0 TAB (This prescription has been renewed) Lovastatin (Lovastatin) 20 Mg Tab 20 MG PO DAILY Cholesterol Management #30 Ref 0 TAB Potassium Chloride ER (Klor-Con 10) 10 Meq Tab 10 MEQ PO BID Electrolyte Replacement #60 Ref 0 TAB Tamsulosin (Tamsulosin) 0.4 Mg Cap 0.4 MG PO HS Manage Prostate Problems #30 Ref 0 CAP Discontinued Medications: Doxycycline (Doxycycline) 40 Mg Cap 100 MG PO DAILY Infection Ref 0 CAP Fluticasone Nasal [place] (Flonase Nasal [place]) 50 Mcg/Act [place] 50 MCG EACH NARE BID Allergies #1 Ref 0 BOTTLE Barbara Collins MD Sep 11, 2016 07:50
[2016-09-11] MEDS ORDERED: METO25TA3 PO (07:55)
[2016-09-11] MEDS ORDERED: FUROSEMIDE 20 MG/2 ML VIAL IV PUSH ONE (08:00)
[2016-09-11 08:01] LABS: BICARBONATE 20.8 MEQ/L (21.0-32.0); POTASSIUM 3.8 MEQ/L (3.5-5.1)
[2016-09-11] MEDS: FLUTICASONE 100 MCG/VILANTEROL 25 MCG INHALER INH SCH (08:04)
[2016-09-11] MEDS: METOPROLOL TARTRATE 25 MG TAB PO SCH (08:04)
[2016-09-11] MEDS: CLOPIDOGREL 75 MG TAB PO SCH (08:04)
[2016-09-11] MEDS: PRAVASTATIN SOD 20 MG TAB PO SCH (08:04)
--- NOTE | 2016-09-11 10:32 | RADRPT ---
EXAM DATE/TIME: 09/11/2016 10:20 [facility] COMPARISON: CHEST SINGLE AP, September 09, 2016, 11:57. INDICATIONS : Shortness of breath. MEDICAL HISTORY : Hypertension. Congestive heart failure. Chronic obstructive pulmonary SURGICAL HISTORY : Valve replacement. ENCOUNTER: Subsequent ACUITY: 3 days PAIN SCORE: Non-responsive. LOCATION: Bilateral chest FINDINGS: Increasing bibasilar consolidative changes worse on the right than the left. Heart is enlarged. The re is no overt congestive failure. Sternal wires from previous bypass are noted. CONCLUSION: Increasing bibasilar parenchymal changes suspicious for an inflammatory process. Car Woods MD FACR on September 11, 2016 at 10:24 Board Certified Radiologist. This report was verified electronically.
[2016-09-11 10:40] LABS: BLOOD GAS BASE EXCESS -2.2 mmol/L (-2-2); BLOOD GAS CARBOXYHEMOGLOBIN 1.8 % (0-4); BLOOD GAS HCO3 22 mmol/L (22-26); BLOOD GAS METHEMOGLOBIN 1.1 % (0-2); BLOOD GAS O2 HGB SATURATION 88 % (90-100); BLOOD GAS PCO2 35 mmHg (38-42); BLOOD GAS PO2 58 mmHG (61-120); BLOOD GAS TOTAL HGB 12.9 G/DL (12.0-16.0); TEMP CORR TO 98.6
[2016-09-11 10:41] LABS: CRITICAL VALUE YES; DRAW SITE RT RADIAL; LITER FLOW 4 L/M; NUMBER OF ARTERIAL PUNCTURES 1; OXYGEN DEVICE NASAL CANNULA; STAT NO; ULNAR PULSE PRESENT
--- NOTE | 2016-09-11 13:10 | HHI.PR ---
Addendum To [facility] Progress Not Reason for addendum: Additonal documentation (spoke with the [facility] ; the patient is being followed up by hospice. [facility] was updated on the patient's condition.the patient will be transferred back to [facility] with hospice.d/w the RN and case management.time spent on discharge 35 min.) Barbara Collins MD Sep 11, 2016 13:10
== END 2016-09-11 13:30 ==
LOC: NEPE 11:39 → NEDA 13:30 → NEPHCDU 15:41 → NEPFCDU 15:41
PROVIDERS: ADMIT Internal Medicine; ATTEND Internal Medicine
DX: R07.9 Chest pain, unspecified (principal); J44.1 Chronic obstructive pulmonary disease with (acute) exacerbation; N28.9 Disorder of kidney and ureter, unspecified; E11.9 Type 2 diabetes mellitus without complications; I11.0 Hypertensive heart disease with heart failure; I50.9 Heart failure, unspecified; I25.10 Atherosclerotic heart disease of native coronary artery without angina pectoris; Z95.2 Presence of prosthetic heart valve; Z88.6 Allergy status to analgesic agent; Z88.0 Allergy status to penicillin; Z79.51 Long term (current) use of inhaled steroids; Z79.02 Long term (current) use of antithrombotics/antiplatelets; Z87.891 Personal history of nicotine dependence; Z79.4 Long term (current) use of insulin; Z99.81 Dependence on supplemental oxygen
CPT/HCPCS: 36600; 71010; 78452; 80048; 80053; 82550; 82805; 82948; 83690; 83735; 83880; 84484; 85025; 85610; 85730; 93005; 93017; 94640; 94664; 99285; A9502; G0378; J1940; J1956; J2785; J7040; J7613